=== PATIENT | female | born 1950 | race Caucasian/White ===

== ENCOUNTER 2021-12-08 16:36 | Inpatient (IN) | payer BC, MEDICARE ==
[2021-12-08 17:57] LABS: #Basophils 0.1 thou/uL (0.0-0.2); #Eosinphils 0.2 thou/uL (0.0-0.7); #Lymphocytes 2.7 thou/uL (1.20-3.40); #Monocytes 0.9 thou/uL (0.11-0.59); #Neutrophils 5.7 thou/uL (1.40-6.50); %Basophils 0.7 % (0.0-1.0); %Eosinophils 2.5 % (0.0-10.0); %Lymphocytes 27.6 % (21.0-51.0); %Monocytes 9.4 % (0.0-10.0); %Neutrophils 59.7 % (42.0-75.0); Hemoglobin 13.3 g/dL (12.0-16.0); Mean Corpuscular HGB CONC 32.8 g/dL (32.0-36.0); Mean Corpuscular Hemoglobin 33.1 pg (27.0-31.0); Mean Platelet Volume 7.3 fL (7.4-10.4); Platelet Count 333 thou/uL (130-400); RBC Distribution Width 11.8 % (11.5-14.5); Red Blood Cell (RBC) Count 4.01 mill/uL (4.20-5.40); White Blood Cell (WBC) Count 9.6 thou/uL (4.8-10.8)
[2021-12-08 18:12] LABS: ALT (SGPT) 28 U/L (8-55); AST (SGOT) 28 U/L (5-34); Albumin 3.6 g/dL (3.4-4.8); Alkaline Phosphatase 77 U/L (40-110); Anion Gap 11 mmol/L (10-20); BUN (Urea Nitrogen) 9 mg/dL (9.8-20.1); Bilirubin, Total 0.3 mg/dL (0.2-1.2); CK (CPK) 65 U/L (29-168); CRP (Inflammatory) Less than 0.50 mg/dL (= or < 0.5); Calc. Creatinine Clearance 0 mL/min (70-130); Calcium 8.6 mg/dL (7.8-10.44); Carbon Dioxide 29 mmol/L (23-31); Chloride 108 mmol/L (98-107); Globulin 2.9 g/dL (2.4-3.5); Glucose 81 mg/dL (80-115); Potassium 4.4 mmol/L (3.5-5.1); Protein, Total 6.5 g/dL (5.8-8.1); Sodium 144 mmol/L (136-145)
[2021-12-08] MEDS ORDERED: Enoxaparin Sodium 30 MG/0.3 ML SYRINGE ONE (19:11)
[2021-12-08] MEDS ORDERED: Enoxaparin Sodium 80 MG/0.8 ML SYRINGE ONE (19:11)
[2021-12-09] MEDS ORDERED: Ondansetron PF 4 MG/2 ML Vial IVP PRN (03:53)
[2021-12-09] MEDS ORDERED: Albuterol 200 PUFF (6.7GM INHALER) INH SCH (04:15)
[2021-12-09] MEDS ORDERED: methylPREDNISolone Sod Succ/PF 125 MG/2 ML VIAL ONE (04:41)
[2021-12-09] MEDS ORDERED: methylPREDNISolone Sod Succ/PF 125 MG/2 ML VIAL IVP SCH ×2 (04:45→12:00)
[2021-12-09] MEDS ORDERED: Acetaminophen 325 MG TAB ONE (04:46)
[2021-12-09] MEDS: Acetaminophen 325 MG TAB PO PRN (04:54)
[2021-12-09 05:25] LABS: #Basophils 0.1 thou/uL (0.0-0.2); #Eosinphils 0.3 thou/uL (0.0-0.7); #Lymphocytes 3.2 thou/uL (1.20-3.40); #Monocytes 0.9 thou/uL (0.11-0.59); #Neutrophils 4.4 thou/uL (1.40-6.50); %Basophils 1.2 % (0.0-1.0); %Eosinophils 3.3 % (0.0-10.0); %Lymphocytes 36.7 % (21.0-51.0); %Monocytes 9.6 % (0.0-10.0); %Neutrophils 49.2 % (42.0-75.0); Hemoglobin 13.2 g/dL (12.0-16.0); Mean Corpuscular HGB CONC 31.8 g/dL (32.0-36.0); Mean Corpuscular Hemoglobin 32.5 pg (27.0-31.0); Mean Platelet Volume 7.2 fL (7.4-10.4); Platelet Count 344 thou/uL (130-400); RBC Distribution Width 11.8 % (11.5-14.5); Red Blood Cell (RBC) Count 4.06 mill/uL (4.20-5.40); White Blood Cell (WBC) Count 8.8 thou/uL (4.8-10.8)
[2021-12-09] MEDS: Ipratropium Oral Inhaler INH SCH ×5 (05:29→19:31)
[2021-12-09 05:30] LABS: Anion Gap 11 mmol/L (10-20); BUN (Urea Nitrogen) 8 mg/dL (9.8-20.1); Calc. Creatinine Clearance 0 mL/min (70-130); Calcium 8.6 mg/dL (7.8-10.44); Carbon Dioxide 31 mmol/L (23-31); Chloride 105 mmol/L (98-107); Glucose 93 mg/dL (80-115); Potassium 3.9 mmol/L (3.5-5.1); Sodium 143 mmol/L (136-145)
[2021-12-09 05:33] VITALS: BMI 41.8
[2021-12-09] MEDS ORDERED: Albuterol Sulfate 1.25 MG/3 ML NEB ONE (06:13)
[2021-12-09] MEDS ORDERED: PROVENTIL INHALER 6.7 G (200 INHALATIONS) ONE (06:14)
[2021-12-09] MEDS: Albuterol 200 PUFF (6.7GM INHALER) INH SCH ×9 (06:45→22:00)
[2021-12-09] MEDS ORDERED: Communication Order-Pharmacy FS SCH (08:28)
[2021-12-09] MEDS ORDERED: Calcium Carbonate 500 MG ChewTAB PO PRN (09:22)
[2021-12-09] MEDS ORDERED: Zinc Sulfate 220 MG CAP ONE (10:19)
[2021-12-09] MEDS ORDERED: Famotidine/PF 20 mg/2ml Vial ONE (10:19)
[2021-12-09] MEDS ORDERED: Ascorbic Acid 500 mg Chewable Tablet ONE (10:19)
[2021-12-09] MEDS ORDERED: Enoxaparin Sodium 100 MG/ML SYRINGE ONE (10:19)
[2021-12-09] MEDS ORDERED: Folic Acid 1 MG TAB ONE (10:19)
[2021-12-09] MEDS ORDERED: Famotidine 20 MG TAB ONE (10:20)
[2021-12-09] MEDS: Enoxaparin Sodium 100 MG/ML SYRINGE SC SCH ×2 (10:37→20:58)
[2021-12-09] MEDS: Multivit, Therapeutic 1 TAB PO SCH (10:37)
[2021-12-09] MEDS: Famotidine 20 MG TAB PO SCH ×2 (10:37→20:55)
[2021-12-09] MEDS: guaiFENesin ER 600 MG TAB PO SCH ×2 (10:37→20:56)
[2021-12-09] MEDS: Folic Acid 1 MG TAB PO SCH (10:37)
[2021-12-09] MEDS: Cyanocobalamin (Vitamin B-12) 1,000 MCG TAB PO SCH (10:37)
[2021-12-09] MEDS: Ascorbic Acid 500 mg Chewable Tablet PO SCH (10:37)
[2021-12-09] MEDS: Zinc Sulfate 220 MG CAP PO SCH (10:37)
[2021-12-09] MEDS ORDERED: methylPREDNISolone Sod Succ 40 MG VIAL ONE (12:39)
[2021-12-09] MEDS: methylPREDNISolone Sod Succ 40 MG VIAL IVP SCH (20:56)
[2021-12-09] MEDS: Senokot S 8.6-50 MG TAB PO SCH (21:31)
[2021-12-10] MEDS: Ipratropium Oral Inhaler INH SCH ×6 (03:07→19:12)
[2021-12-10] MEDS: Albuterol 200 PUFF (6.7GM INHALER) INH SCH ×11 (03:07→22:43)
[2021-12-10 04:39] LABS: #Basophils 0.1 thou/uL (0.0-0.2); #Lymphocytes 1.9 thou/uL (1.20-3.40); #Monocytes 0.7 thou/uL (0.11-0.59); #Neutrophils 8.3 thou/uL (1.40-6.50); %Basophils 0.5 % (0.0-1.0); %Lymphocytes 17.5 % (21.0-51.0); %Monocytes 6.7 % (0.0-10.0); %Neutrophils 75.3 % (42.0-75.0); Hemoglobin 12.8 g/dL (12.0-16.0); Mean Corpuscular HGB CONC 33.9 g/dL (32.0-36.0); Mean Corpuscular Hemoglobin 34.2 pg (27.0-31.0); Mean Platelet Volume 7.6 fL (7.4-10.4); Platelet Count 320 thou/uL (130-400); RBC Distribution Width 11.5 % (11.5-14.5); Red Blood Cell (RBC) Count 3.73 mill/uL (4.20-5.40)
[2021-12-10 05:10] LABS: Anion Gap 13 mmol/L (10-20); BUN (Urea Nitrogen) 10 mg/dL (9.8-20.1); Calc. Creatinine Clearance 147 mL/min (70-130); Calcium 8.8 mg/dL (7.8-10.44); Carbon Dioxide 28 mmol/L (23-31); Chloride 106 mmol/L (98-107); Glucose 127 mg/dL (80-115); Potassium 4.2 mmol/L (3.5-5.1); Sodium 143 mmol/L (136-145)
[2021-12-10] MEDS: methylPREDNISolone Sod Succ 40 MG VIAL IVP SCH (06:13)
[2021-12-10] MEDS: Acetaminophen 325 MG TAB PO PRN (06:15)
[2021-12-10] MEDS: Famotidine 20 MG TAB PO SCH ×2 (09:31→21:04)
[2021-12-10] MEDS: Enoxaparin Sodium 100 MG/ML SYRINGE SC SCH (09:31)
[2021-12-10] MEDS: Zinc Sulfate 220 MG CAP PO SCH (09:31)
[2021-12-10] MEDS: Cyanocobalamin (Vitamin B-12) 1,000 MCG TAB PO SCH (09:32)
[2021-12-10] MEDS: Multivit, Therapeutic 1 TAB PO SCH (09:32)
[2021-12-10] MEDS: Senokot S 8.6-50 MG TAB PO SCH ×2 (09:32→22:51)
[2021-12-10] MEDS: Ascorbic Acid 500 mg Chewable Tablet PO SCH (09:32)
[2021-12-10] MEDS: guaiFENesin ER 600 MG TAB PO SCH ×2 (09:32→21:04)
[2021-12-10] MEDS: Folic Acid 1 MG TAB PO SCH (09:32)
[2021-12-10 15:30] LABS: SARS-CoV-2 PCR by NAA Not Detected (NotDetected)
[2021-12-10] MEDS: predniSONE 20 MG TAB PO SCH (16:24)
[2021-12-10] MEDS: Apixaban 5 MG TAB PO SCH (21:04)
[2021-12-11] MEDS: Albuterol 200 PUFF (6.7GM INHALER) INH SCH ×7 (01:43→11:44)
[2021-12-11] MEDS: Ipratropium Oral Inhaler INH SCH ×4 (01:44→11:44)
[2021-12-11] MEDS: Apixaban 5 MG TAB PO SCH (08:21)
[2021-12-11] MEDS: predniSONE 20 MG TAB PO SCH (08:23)
[2021-12-11] MEDS: Famotidine 20 MG TAB PO SCH (08:24)
[2021-12-11] MEDS: Ascorbic Acid 500 mg Chewable Tablet PO SCH (08:24)
[2021-12-11] MEDS: Zinc Sulfate 220 MG CAP PO SCH (08:24)
[2021-12-11] MEDS: guaiFENesin ER 600 MG TAB PO SCH (08:24)
[2021-12-11] MEDS: Multivit, Therapeutic 1 TAB PO SCH (08:24)
[2021-12-11] MEDS: Cyanocobalamin (Vitamin B-12) 1,000 MCG TAB PO SCH (08:24)
[2021-12-11] MEDS: Folic Acid 1 MG TAB PO SCH (08:24)
[2021-12-11] MEDS: Senokot S 8.6-50 MG TAB PO SCH (08:32)
[2021-12-11] MEDS ORDERED: Fluticasone Propionate Nasal Spray 16 gm Bottle NASAL SCH (09:00)
[2021-12-11] MEDS ORDERED: Loratadine 10 MG TAB PO SCH (09:00)
[2021-12-11 12:05] VITALS: BP 160/64; TEMP 97.4
== END 2021-12-11 13:39 | disposition home or self-care (01) | DRG 177 ==
LOC: ERS 16:36 → ERHOLD 21:02 → 2NO 12-09 16:58
PROVIDERS: ADMIT Internal Medicine; ATTEND Internal Medicine
PROC: 8E0ZXY6 Isolation (ICD-10-PCS; principal; 2021-12-08)
DX: U07.1 COVID-19 (principal); I26.93 Single subsegmental thrombotic pulmonary embolism without acute cor pulmonale; J96.21 Acute and chronic respiratory failure with hypoxia; J12.82 Pneumonia due to coronavirus disease 2019; J44.1 Chronic obstructive pulmonary disease with (acute) exacerbation; Z68.41 Body mass index [BMI] 40.0-44.9, adult; U09.9 Post COVID-19 condition, unspecified; F17.210 Nicotine dependence, cigarettes, uncomplicated; E66.01 Morbid (severe) obesity due to excess calories; I08.1 Rheumatic disorders of both mitral and tricuspid valves; D75.89 Other specified diseases of blood and blood-forming organs; Z90.49 Acquired absence of other specified parts of digestive tract; Z90.710 Acquired absence of both cervix and uterus
CPT/HCPCS: 36415; 80048; 82550; 83605; 83735; 83880; 84484; 85025; 86140; 93005; 93306; 93970; 94664; 94760; 96372; J1650; J2920; J2930; J7512; S0028; U0003; U0005

== ENCOUNTER 2022-02-13 09:50 | Outpatient (CLI) | payer BC, MEDICARE | END 2022-02-13 09:51 | disposition home or self-care (01) | LOC: RAD 09:50 | PROVIDERS: ATTEND Internal Medicine Critical Care Medicine | DX: R06.00 Dyspnea, unspecified (principal) | CPT/HCPCS: 71046 ==

== ENCOUNTER 2022-03-23 19:00 | Outpatient (CLI) | payer BC, MEDICARE | END 2022-03-23 19:01 | disposition home or self-care (01) | LOC: SLEEPLAB 19:00 | PROVIDERS: ATTEND Internal Medicine Critical Care Medicine | DX: G47.33 Obstructive sleep apnea (adult) (pediatric) (principal); J44.9 Chronic obstructive pulmonary disease, unspecified; R09.02 Hypoxemia | CPT/HCPCS: 95810 ==

== ENCOUNTER 2022-04-14 19:00 | Outpatient (CLI) | payer BC, MEDICARE | END 2022-04-14 19:01 | disposition home or self-care (01) | LOC: SLEEPLAB 19:00 | PROVIDERS: ATTEND Internal Medicine Critical Care Medicine | DX: G47.33 Obstructive sleep apnea (adult) (pediatric) (principal); E66.9 Obesity, unspecified; J44.9 Chronic obstructive pulmonary disease, unspecified; R09.02 Hypoxemia; Z68.38 Body mass index [BMI] 38.0-38.9, adult | CPT/HCPCS: 95811 ==

== ENCOUNTER 2023-05-02 10:32 | Outpatient (CLI) | payer MEDICARE | END 2023-05-02 10:33 | disposition home or self-care (01) | LOC: RAD 10:32 | PROVIDERS: ATTEND Internal Medicine Critical Care Medicine | DX: R06.00 Dyspnea, unspecified (principal); J98.4 Other disorders of lung | CPT/HCPCS: 71046 ==

== ENCOUNTER 2023-06-07 12:30 | Outpatient (CLI) | payer MEDICARE | END 2023-06-07 12:31 | disposition home or self-care (01) | LOC: PET 12:30 | PROVIDERS: ATTEND Internal Medicine | DX: C34.82 Malignant neoplasm of overlapping sites of left bronchus and lung (principal); C34.32 Malignant neoplasm of lower lobe, left bronchus or lung; J85.0 Gangrene and necrosis of lung | CPT/HCPCS: 78815; A9552 ==

== ENCOUNTER 2023-06-14 10:09 | Day surgery (SDC) | payer MEDICARE ==
[2023-06-08 12:05] VITALS: BMI 38.7
[2023-06-14] MEDS ORDERED: Acetaminophen 500 MG TAB ONE (11:54)
[2023-06-14] MEDS ORDERED: Ketorolac Tromethamine 30 MG/ML VIAL ONE (11:54)
[2023-06-14] MEDS ORDERED: Magnevist 469MG/ML 20 ML VIAL ONE (14:15)
[2023-06-14] MEDS ORDERED: Lidocaine 2% PF 5 ML VIAL ONE (15:19)
[2023-06-14] MEDS ORDERED: Bupivacaine HCl 0.5%/Epinephrine 1:200,000/PF 30 ml Vial ONE (15:19)
[2023-06-14] MEDS ORDERED: fentaNYL 50 mcg/mL 1 mL Vial ONE (15:54)
[2023-06-14] MEDS ORDERED: Sodium Chloride 0.9% 100 ML ONE (15:56)
[2023-06-14] MEDS ORDERED: CEFAZOLIN 2 GM VIAL ONE (15:56)
[2023-06-14] MEDS ORDERED: Dexamethasone 20 MG/5 ML VIAL ONE (16:13)
[2023-06-14] MEDS ORDERED: Lidocaine 1% PF 5 ML VIAL ONE (16:13)
[2023-06-14] MEDS ORDERED: Ondansetron PF 4 MG/2 ML Vial ONE (16:13)
[2023-06-14] MEDS ORDERED: PROPOFOL 200 MG/20 ML VIAL ONE (16:13)
== END 2023-06-14 18:07 | disposition home or self-care (01) ==
LOC: SDC 10:09
PROVIDERS: ATTEND Specialist
PROC: 0JH60WZ Insertion of Totally Implantable Vascular Access Device into Chest Subcutaneous Tissue and Fascia, Open Approach (ICD-10-PCS; principal; 2023-06-14)
DX: C34.92 Malignant neoplasm of unspecified part of left bronchus or lung (principal); J44.9 Chronic obstructive pulmonary disease, unspecified; Z87.891 Personal history of nicotine dependence; Z86.711 Personal history of pulmonary embolism; Z88.8 Allergy status to other drugs, medicaments and biological substances
CPT/HCPCS: 36561; 70553; 71045; C1788; J3010; A9579; J1100; J1642; J1885; J2001; J2405; J2704; J3490

== ENCOUNTER 2023-08-24 15:07 | Inpatient (IN) | payer MEDICARE ==
[2023-08-24 15:22] LABS: #Monocytes 1.3 thou/uL (0.11-0.59); #Neutrophils 15.5 thou/uL (1.40-6.50); %Basophils 0.2 % (0.0-1.0); %Eosinophils 0.1 % (0.0-10.0); %Lymphocytes 4.9 % (21.0-51.0); %Monocytes 7.2 % (0.0-10.0); %Neutrophils 86.6 % (42.0-75.0); Hematocrit 27.4 % (36.0-47.0); Hemoglobin 8.5 g/dL (12.0-16.0); Mean Corpuscular Hemoglobin 28.1 pg (27.0-31.0); Mean Corpuscular Volume 90.7 fl (78.0-98.0); Mean Platelet Volume 9.6 fL (7.4-10.4); Platelet Count 292 10x3/uL (130-400); RBC Distribution Width 21.8 % (11.5-14.5); Red Blood Cell (RBC) Count 3.02 mill/uL (4.20-5.40); White Blood Cell (WBC) Count 17.8 10x3/uL (4.8-10.8)
[2023-08-24 15:23] VITALS: BMI 37.4
[2023-08-24 15:41] LABS: ALT (SGPT) 15 U/L (8-55); AST (SGOT) 17 U/L (5-34); Albumin 3.3 g/dL (3.4-4.8); Alkaline Phosphatase 139 U/L (40-110); Anion Gap 16 mmol/L (10-20); BUN (Urea Nitrogen) 9 mg/dL (9.8-20.1); Bilirubin, Total Less than 0.2 mg/dL (0.2-1.2); Calc. Creatinine Clearance 0 mL/min (70-130); Calcium 9.1 mg/dL (7.8-10.44); Carbon Dioxide 28 mmol/L (23-31); Chloride 95 mmol/L (98-107); Estimated GFR 93; Globulin 3.8 g/dL (2.4-3.5); Glucose 113 mg/dL (83-110); Protein, Total 7.1 g/dL (5.8-8.1); Sodium 135 mmol/L (136-145)
[2023-08-24 15:46] LABS: Troponin I Less than 0.010 ng/mL (< 0.028)
[2023-08-24] MEDS ORDERED: Ondansetron ODT 4 MG TAB PO PRN (15:55)
[2023-08-24] MEDS ORDERED: Ondansetron PF 4 MG/2 ML Vial IVP PRN (15:55)
[2023-08-24] MEDS ORDERED: Acetaminophen 325 MG TAB PO PRN (15:55)
[2023-08-24] MEDS ORDERED: Meropenem 1 GM in Sodium Chloride 0.9% 100 ML IVPB SCH ×2 (16:15→22:00)
[2023-08-24] MEDS ORDERED: Lidocaine-Prilocaine 2.5% Cream 5 GM TUBE TOP PRN (16:27)
[2023-08-24] MEDS ORDERED: Non-Formulary Item 1 EACH (Docusate Sodium [Stool Softener] 50 MG Capsule) PO PRN (16:27)
[2023-08-24] MEDS ORDERED: Vancomycin 1 GM in Premix Bag 1 BAG IVPB SCH ×2 (16:30→21:00)
[2023-08-24] MEDS ORDERED: Vancomycin HCl 2.5 GM in Sodium Chloride 0.9% 500 ML IVPB SCH ×2 (16:30→17:30)
[2023-08-24] MEDS ORDERED: Prochlorperazine Maleate 5 MG TAB PO PRN (16:50)
[2023-08-24] MEDS ORDERED: Ipratropium/Albuterol 3 ML NEB NEB PRN (17:02)
[2023-08-24] MEDS: Ipratropium Bromide 2.5 ml Neb NEB SCH (18:57)
[2023-08-24] MEDS: Cyanocobalamin (Vitamin B-12) 1,000 MCG TAB PO SCH (20:11)
[2023-08-24] MEDS: Apixaban 5 MG TAB PO SCH (20:12)
[2023-08-24] MEDS: Benzonatate 100 MG CAP PO PRN (20:12)
[2023-08-24] MEDS: Ondansetron ODT 8 MG TAB PO SCH (20:15)
[2023-08-25] MEDS: Meropenem 1 GM in Sodium Chloride 0.9% 100 ML IVPB SCH ×3 (00:30→16:20)
[2023-08-25 04:36] LABS: #Monocytes 1.1 thou/uL (0.11-0.59); #Neutrophils 11.6 thou/uL (1.40-6.50); %Basophils 0.1 % (0.0-1.0); %Eosinophils 0.1 % (0.0-10.0); %Lymphocytes 7.5 % (21.0-51.0); %Monocytes 7.9 % (0.0-10.0); %Neutrophils 83.1 % (42.0-75.0); Hematocrit 26.4 % (36.0-47.0); Mean Corpuscular HGB CONC 30.3 g/dL (32.0-36.0); Mean Corpuscular Hemoglobin 27.7 pg (27.0-31.0); Mean Corpuscular Volume 91.3 fl (78.0-98.0); Mean Platelet Volume 9.7 fL (7.4-10.4); Platelet Count 287 10x3/uL (130-400); Red Blood Cell (RBC) Count 2.89 mill/uL (4.20-5.40)
[2023-08-25 05:04] LABS: Anion Gap 14 mmol/L (10-20); BUN (Urea Nitrogen) 7 mg/dL (9.8-20.1); Calc. Creatinine Clearance 120 mL/min (70-130); Calcium 8.8 mg/dL (7.8-10.44); Carbon Dioxide 30 mmol/L (23-31); Chloride 97 mmol/L (98-107); Estimated GFR 93; Glucose 101 mg/dL (83-110); Potassium 4.1 mmol/L (3.5-5.1); Sodium 137 mmol/L (136-145)
[2023-08-25] MEDS: Ondansetron ODT 8 MG TAB PO SCH ×3 (05:19→22:00)
[2023-08-25] MEDS: VANCOMYCIN 1.25 GM/250 ML BAG 1.25 GM in Premix Bag 1 BAG IVPB SCH ×2 (05:26→20:49)
[2023-08-25] MEDS: Ipratropium Bromide 2.5 ml Neb NEB SCH ×3 (05:38→18:39)
[2023-08-25] MEDS ORDERED: VANCOMYCIN 1.25 GM/250 ML BAG 1.25 GM in Premix Bag 1 BAG IVPB SCH (06:00)
[2023-08-25] MEDS: Apixaban 5 MG TAB PO SCH ×2 (08:51→20:47)
[2023-08-25] MEDS: Folic Acid 1 MG TAB PO SCH (08:51)
[2023-08-25] MEDS: Cholecalciferol 1,000 UNITS (25 MCG) TAB PO SCH (08:51)
[2023-08-25] MEDS: Gabapentin 300 MG CAP PO SCH (08:52)
[2023-08-25] MEDS: traMADol HCl 50 MG TAB PO SCH (09:16)
[2023-08-25] MEDS ORDERED: Lorazepam 2 MG/ML VIAL SLOW IVP PRN (11:42)
[2023-08-25] MEDS: Cyanocobalamin (Vitamin B-12) 1,000 MCG TAB PO SCH (20:47)
[2023-08-26] MEDS: Meropenem 1 GM in Sodium Chloride 0.9% 100 ML IVPB SCH ×3 (00:14→18:33)
[2023-08-26 06:28] LABS: #Monocytes 1.2 thou/uL (0.11-0.59); #Neutrophils 10.1 thou/uL (1.40-6.50); %Basophils 0.2 % (0.0-1.0); %Eosinophils 0.2 % (0.0-10.0); %Lymphocytes 8.5 % (21.0-51.0); %Monocytes 9.3 % (0.0-10.0); %Neutrophils 80.8 % (42.0-75.0); Hemoglobin 7.6 g/dL (12.0-16.0); Mean Corpuscular HGB CONC 30.4 g/dL (32.0-36.0); Mean Corpuscular Hemoglobin 27.9 pg (27.0-31.0); Mean Corpuscular Volume 91.9 fl (78.0-98.0); Mean Platelet Volume 9.4 fL (7.4-10.4); Platelet Count 256 10x3/uL (130-400); RBC Distribution Width 21.7 % (11.5-14.5); Red Blood Cell (RBC) Count 2.72 mill/uL (4.20-5.40); White Blood Cell (WBC) Count 12.5 10x3/uL (4.8-10.8)
[2023-08-26] MEDS: Ipratropium Bromide 2.5 ml Neb NEB SCH ×3 (06:38→18:49)
[2023-08-26] MEDS: Ondansetron ODT 8 MG TAB PO SCH ×2 (06:42→16:06)
[2023-08-26 06:50] LABS: Vancomycin, Trough 13.8 ug/mL
[2023-08-26 06:51] LABS: Anion Gap 13 mmol/L (10-20); BUN (Urea Nitrogen) 5 mg/dL (9.8-20.1); Calc. Creatinine Clearance 136 mL/min (70-130); Calcium 8.6 mg/dL (7.8-10.44); Carbon Dioxide 31 mmol/L (23-31); Chloride 96 mmol/L (98-107); Estimated GFR 96; Glucose 116 mg/dL (83-110); Potassium 3.8 mmol/L (3.5-5.1); Sodium 136 mmol/L (136-145)
[2023-08-26] MEDS: Vancomycin 1.5 GRAM/300 ML BAG 1.5 GM in Premix Bag 1 BAG IVPB SCH ×2 (09:51→20:23)
[2023-08-26] MEDS: Cholecalciferol 1,000 UNITS (25 MCG) TAB PO SCH (09:52)
[2023-08-26] MEDS: Gabapentin 300 MG CAP PO SCH (09:53)
[2023-08-26] MEDS: Apixaban 5 MG TAB PO SCH ×2 (09:53→20:25)
[2023-08-26] MEDS: Folic Acid 1 MG TAB PO SCH (09:53)
[2023-08-26] MEDS: traMADol HCl 50 MG TAB PO SCH (09:54)
[2023-08-26] MEDS ORDERED: Ondansetron ODT 4 MG TAB PO SCH (15:30)
[2023-08-26] MEDS: VANCOMYCIN 1.25 GM/250 ML BAG 1.25 GM in Premix Bag 1 BAG IVPB SCH (16:06)
[2023-08-26] MEDS: Cyanocobalamin (Vitamin B-12) 1,000 MCG TAB PO SCH (20:25)
[2023-08-26] MEDS: Ondansetron ODT 4 MG TAB PO SCH (22:00)
[2023-08-27] MEDS: Meropenem 1 GM in Sodium Chloride 0.9% 100 ML IVPB SCH ×2 (00:11→11:45)
[2023-08-27] MEDS: Ipratropium Bromide 2.5 ml Neb NEB SCH ×2 (06:44→14:03)
[2023-08-27] MEDS: Ondansetron ODT 4 MG TAB PO SCH ×3 (06:53→21:05)
[2023-08-27 07:14] LABS: Anion Gap 13 mmol/L (10-20); BUN (Urea Nitrogen) 6 mg/dL (9.8-20.1); Calc. Creatinine Clearance 143 mL/min (70-130); Calcium 8.6 mg/dL (7.8-10.44); Carbon Dioxide 32 mmol/L (23-31); Chloride 97 mmol/L (98-107); Estimated GFR 97; Glucose 100 mg/dL (83-110); Potassium 3.7 mmol/L (3.5-5.1); Sodium 138 mmol/L (136-145)
[2023-08-27 07:47] LABS: #Monocytes 1.3 thou/uL (0.11-0.59); #Neutrophils 9.4 thou/uL (1.40-6.50); %Basophils 0.3 % (0.0-1.0); %Eosinophils 0.3 % (0.0-10.0); %Lymphocytes 8.2 % (21.0-51.0); %Monocytes 11.1 % (0.0-10.0); %Neutrophils 79.1 % (42.0-75.0); Hematocrit 23.6 % (36.0-47.0); Hemoglobin 7.2 g/dL (12.0-16.0); Mean Corpuscular HGB CONC 30.5 g/dL (32.0-36.0); Mean Corpuscular Hemoglobin 27.9 pg (27.0-31.0); Mean Corpuscular Volume 91.5 fl (78.0-98.0); Mean Platelet Volume 9.4 fL (7.4-10.4); Platelet Count 285 10x3/uL (130-400); RBC Distribution Width 21.4 % (11.5-14.5); Red Blood Cell (RBC) Count 2.58 mill/uL (4.20-5.40); White Blood Cell (WBC) Count 11.9 10x3/uL (4.8-10.8)
[2023-08-27] MEDS ORDERED: FLU VACC QS2023(65UP)/MF59C/PF 60 MCG/0.5 ML SYRINGE IM ONE (09:00)
[2023-08-27] MEDS: Vancomycin 1.5 GRAM/300 ML BAG 1.5 GM in Premix Bag 1 BAG IVPB SCH (09:40)
[2023-08-27] MEDS: Cholecalciferol 1,000 UNITS (25 MCG) TAB PO SCH (09:42)
[2023-08-27] MEDS: Folic Acid 1 MG TAB PO SCH (09:42)
[2023-08-27] MEDS: Gabapentin 300 MG CAP PO SCH (09:43)
[2023-08-27] MEDS ORDERED: Ipratropium/Albuterol 3 ML NEB NEB SCH ×2 (09:45→13:00)
[2023-08-27] MEDS: traMADol HCl 50 MG TAB PO SCH (09:45)
[2023-08-27] MEDS ORDERED: Mometasone/Formoterol 200/5 60 PUFF INH SCH (09:45)
[2023-08-27] MEDS: Apixaban 5 MG TAB PO SCH ×2 (09:48→21:05)
[2023-08-27] MEDS ORDERED: Albuterol 200 PUFF (6.7GM INHALER) INH PRN (09:50)
[2023-08-27] MEDS: Mometasone 200 MCG/Formoterol 5 MCG 120 PUFF INHALER INH SCH ×2 (09:52→19:15)
[2023-08-27] MEDS: Ipratropium/Albuterol 3 ML NEB NEB SCH ×6 (09:59→22:32)
[2023-08-27] MEDS ORDERED: Sodium Chloride 0.9% 100 ML ONE (10:42)
[2023-08-27] MEDS ORDERED: Meropenem 2 GM in Sodium Chloride 0.9% 100 ML IVPB SCH ×2 (11:35→20:00)
[2023-08-27] MEDS: Benzonatate 100 MG CAP PO PRN (11:46)
[2023-08-27] MEDS ORDERED: Ipratropium/Albuterol 3 ML NEB NEB PRN (17:00)
[2023-08-27] MEDS ORDERED: Meropenem 2 GM, Admixture Fee 1 EACH in Sodium Chloride 0.9% 100 ML IVPB SCH (20:00)
[2023-08-27] MEDS: Cyanocobalamin (Vitamin B-12) 1,000 MCG TAB PO SCH (21:08)
[2023-08-28] MEDS: Ipratropium/Albuterol 3 ML NEB NEB SCH ×5 (02:30→19:07)
[2023-08-28] MEDS: Ondansetron ODT 4 MG TAB PO SCH ×3 (05:07→20:26)
[2023-08-28] MEDS: Meropenem 2 GM, Admixture Fee 1 EACH in Sodium Chloride 0.9% 100 ML IVPB SCH ×3 (05:08→20:36)
[2023-08-28 05:20] LABS: #Eosinphils 0.1 thou/uL (0.0-0.7); #Neutrophils 8.6 thou/uL (1.40-6.50); %Basophils 0.2 % (0.0-1.0); %Eosinophils 0.5 % (0.0-10.0); %Lymphocytes 10.2 % (21.0-51.0); %Monocytes 8.7 % (0.0-10.0); %Neutrophils 79.1 % (42.0-75.0); Hematocrit 22.4 % (36.0-47.0); Hemoglobin 6.9 g/dL (12.0-16.0); Mean Corpuscular HGB CONC 30.8 g/dL (32.0-36.0); Mean Corpuscular Hemoglobin 28.5 pg (27.0-31.0); Mean Corpuscular Volume 92.6 fl (78.0-98.0); Mean Platelet Volume 10.1 fL (7.4-10.4); Platelet Count 302 10x3/uL (130-400); RBC Distribution Width 21.7 % (11.5-14.5); Red Blood Cell (RBC) Count 2.42 mill/uL (4.20-5.40); White Blood Cell (WBC) Count 10.9 10x3/uL (4.8-10.8)
[2023-08-28 05:47] LABS: Anion Gap 14 mmol/L (10-20); BUN (Urea Nitrogen) 7 mg/dL (9.8-20.1); Calc. Creatinine Clearance 109 mL/min (70-130); Calcium 8.6 mg/dL (7.8-10.44); Carbon Dioxide 31 mmol/L (23-31); Chloride 94 mmol/L (98-107); Estimated GFR 84; Glucose 141 mg/dL (83-110); Potassium 3.5 mmol/L (3.5-5.1); Sodium 135 mmol/L (136-145)
[2023-08-28] MEDS: Mometasone 200 MCG/Formoterol 5 MCG 120 PUFF INHALER INH SCH ×2 (07:36→19:04)
[2023-08-28] MEDS: traMADol HCl 50 MG TAB PO SCH (09:28)
[2023-08-28] MEDS: Benzonatate 100 MG CAP PO PRN (09:28)
[2023-08-28] MEDS: Cholecalciferol 1,000 UNITS (25 MCG) TAB PO SCH (09:29)
[2023-08-28] MEDS: Gabapentin 300 MG CAP PO SCH (09:29)
[2023-08-28] MEDS: Folic Acid 1 MG TAB PO SCH (09:29)
[2023-08-28] MEDS: Apixaban 5 MG TAB PO SCH (09:30)
[2023-08-28 19:40] VITALS: BP 115/65; TEMP 98.5
[2023-08-28] MEDS: Cyanocobalamin (Vitamin B-12) 1,000 MCG TAB PO SCH (20:27)
== END 2023-08-28 20:40 | disposition swing bed (61) | DRG 871 ==
LOC: SJJU 15:07
PROVIDERS: ADMIT Family Medicine; ATTEND Internal Medicine
PROC: 02HV33Z Insertion of Infusion Device into Superior Vena Cava, Percutaneous Approach (ICD-10-PCS; principal; 2023-08-24)
PROC: B5181ZA Fluoroscopy of Superior Vena Cava using Low Osmolar Contrast, Guidance (ICD-10-PCS; 2023-08-24)
PROC: 5A09357 Assistance with Respiratory Ventilation, Less than 24 Consecutive Hours, Continuous Positive Airway Pressure (ICD-10-PCS; 2023-08-24)
PROC: 30233N1 Transfusion of Nonautologous Red Blood Cells into Peripheral Vein, Percutaneous Approach (ICD-10-PCS; 2023-08-28)
DX: A41.9 Sepsis, unspecified organism (principal); J15.1 Pneumonia due to Pseudomonas; J96.21 Acute and chronic respiratory failure with hypoxia; C34.90 Malignant neoplasm of unspecified part of unspecified bronchus or lung; J44.0 Chronic obstructive pulmonary disease with (acute) lower respiratory infection; G47.33 Obstructive sleep apnea (adult) (pediatric); D64.9 Anemia, unspecified; Z91.018 Allergy to other foods; Z88.8 Allergy status to other drugs, medicaments and biological substances; Z79.899 Other long term (current) drug therapy; Z98.890 Other specified postprocedural states; Z90.49 Acquired absence of other specified parts of digestive tract; Z90.710 Acquired absence of both cervix and uterus; Z87.891 Personal history of nicotine dependence; Z86.711 Personal history of pulmonary embolism; Z80.0 Family history of malignant neoplasm of digestive organs; Z99.81 Dependence on supplemental oxygen; Z86.16 Personal history of COVID-19
CPT/HCPCS: 36415; 36430; 36569; 71045; 80048; 80053; 80202; 83605; 84484; 85025; 86850; 86900; 86901; 87040; 87070; 87077; 87081; 87186; 87205; 94640; J1642; J2060; J2185; J3370; J3490; J7030; J7620; P9016; Q0162

== ENCOUNTER 2023-11-10 14:35 | Inpatient (IN) | payer MEDICARE, OTHER ==
[2023-11-10] MEDS ORDERED: Bisacodyl 5 MG TAB PO PRN (17:00)
[2023-11-10] MEDS ORDERED: Acetaminophen 325 MG TAB PO PRN (17:00)
[2023-11-10] MEDS ORDERED: Bisacodyl 10 MG SUPP PR PRN (17:00)
[2023-11-10] MEDS ORDERED: Senokot S 8.6-50 MG TAB PO PRN (17:00)
[2023-11-10] MEDS ORDERED: Guaifenesin DM 100-10/5 ML UDCUP PO PRN (17:00)
[2023-11-10 17:14] VITALS: BMI 37.4
[2023-11-10] MEDS ORDERED: Vancomycin (BATCH) 2 GM in Premix 1 BAG IVPB SCH (18:15)
[2023-11-10] MEDS: Ipratropium/Albuterol 3 ML NEB NEB SCH ×2 (18:38→23:05)
[2023-11-10] MEDS: methylPREDNISolone Sod Succ 40 MG VIAL IVP SCH ×2 (18:42→23:52)
[2023-11-10 19:42] LABS: Hematocrit 24.5 % (36.0-47.0); Hemoglobin 6.9 g/dL (12.0-16.0); Mean Corpuscular HGB CONC 28.2 g/dL (32.0-36.0); Mean Corpuscular Hemoglobin 26.3 pg (27.0-31.0); Mean Corpuscular Volume 93.5 fl (78.0-98.0); Mean Platelet Volume 9.8 fL (7.4-10.4); Platelet Count 438 10x3/uL (130-400); RBC Distribution Width 19.6 % (11.5-14.5); Red Blood Cell (RBC) Count 2.62 mill/uL (4.20-5.40); White Blood Cell (WBC) Count 30.9 10x3/uL (4.8-10.8)
[2023-11-10] MEDS: Mometasone/Formoterol 200/5 60 PUFF INH SCH (19:45)
[2023-11-10 19:57] LABS: Legionella Urinary Ag Negative (Negative); Strep pneumo Urine Ag POSITIVE (NEGATIVE)
[2023-11-10 19:59] LABS: Iron 19 ug/dL (50-170); Iron Binding Capacity, Total 166 mcg/dL (265-497)
[2023-11-10] MEDS: Pantoprazole 40 MG VIAL IVP SCH (20:08)
[2023-11-10] MEDS: Enoxaparin 100 MG (1 mL) SYRINGE SC SCH (20:08)
[2023-11-10] MEDS ORDERED: Cyanocobalamin (Vitamin B-12) 1,000 MCG TAB PO SCH (21:00)
[2023-11-10] MEDS ORDERED: Vancomycin 1 GM in Premix 1 BAG IVPB SCH (21:00)
[2023-11-11] MEDS: methylPREDNISolone Sod Succ 40 MG VIAL IVP SCH ×4 (05:36→23:56)
[2023-11-11] MEDS: Ipratropium/Albuterol 3 ML NEB NEB SCH ×4 (07:50→22:46)
[2023-11-11] MEDS: Mometasone/Formoterol 200/5 60 PUFF INH SCH (07:51)
[2023-11-11 08:26] LABS: Hematocrit 27.1 % (36.0-47.0); Hemoglobin 7.7 g/dL (12.0-16.0); Manual Diff?? YES; Mean Corpuscular HGB CONC 28.4 g/dL (32.0-36.0); Mean Corpuscular Volume 95.1 fl (78.0-98.0); Mean Platelet Volume 9.7 fL (7.4-10.4); Platelet Count 426 10x3/uL (130-400); Red Blood Cell (RBC) Count 2.85 mill/uL (4.20-5.40); White Blood Cell (WBC) Count 31.2 10x3/uL (4.8-10.8)
[2023-11-11 08:53] LABS: Delete Auto Diff?? YES
[2023-11-11] MEDS ORDERED: Folic Acid 1 MG TAB PO SCH (09:00)
[2023-11-11] MEDS: Enoxaparin 100 MG (1 mL) SYRINGE SC SCH (09:06)
[2023-11-11] MEDS: Gabapentin 300 MG CAP PO SCH (09:06)
[2023-11-11] MEDS: Azithromycin 250 MG TAB PO SCH (09:06)
[2023-11-11] MEDS: Pantoprazole 40 MG VIAL IVP SCH ×2 (09:08→20:46)
[2023-11-11] MEDS: Vancomycin (BATCH) 1.25 GM in Premix 1 BAG IVPB SCH ×2 (09:34→20:39)
[2023-11-11 10:05] LABS: Hemoglobin A1c 5.6 % (4.0-6.0)
[2023-11-11] MEDS: Ipratropium/Albuterol 3 ML NEB NEB PRN (10:19)
[2023-11-11 11:02] LABS: Band 8 % (5-11); Lymphocytes 5 % (21-51); Metamyelocyte 1 % (0-0); Monocytes 1 % (0-10); Neutrophil 85 % (42-75)
[2023-11-11 11:04] LABS: Platelet Adequacy Comment Appears Increased
[2023-11-11] MEDS ORDERED: Benzonatate 100 MG CAP PO PRN (13:29)
[2023-11-11] MEDS ORDERED: Meropenem 1 GM in Sodium Chloride 0.9% 100 ML IVPB SCH (13:30)
[2023-11-11] MEDS ORDERED: methylPREDNISolone Sod Succ 40 MG VIAL IVP SCH (13:30)
[2023-11-11 15:12] LABS: ALT (SGPT) 20 U/L (8-55); AST (SGOT) 22 U/L (5-34); Albumin 2.2 g/dL (3.4-4.8); Alkaline Phosphatase 162 U/L (40-110); Anion Gap 17 mmol/L (10-20); BUN (Urea Nitrogen) 10 mg/dL (9.8-20.1); Bilirubin, Direct 0.1 mg/dL (0.1-0.3); Bilirubin, Total 0.2 mg/dL (0.2-1.2); Calc. Creatinine Clearance 146 mL/min (70-130); Calcium 8.9 mg/dL (7.8-10.44); Carbon Dioxide 30 mmol/L (23-31); Chloride 99 mmol/L (98-107); Estimated GFR 97; Glucose 143 mg/dL (83-110); Magnesium 2.1 mg/dL (1.6-2.6); Protein, Total 5.9 g/dL (5.8-8.1); Sodium 142 mmol/L (136-145)
[2023-11-11] MEDS ORDERED: Cefepime 2 GM in Sodium Chloride 0.9% 100 ML IVPB SCH (18:00)
[2023-11-11] MEDS: guaiFENesin ER 600 MG TAB PO SCH (20:46)
[2023-11-11] MEDS: Apixaban 5 MG TAB PO SCH (20:46)
[2023-11-11] MEDS: Meropenem 1 GM in Sodium Chloride 0.9% 100 ML IVPB SCH (20:51)
[2023-11-11] MEDS ORDERED: Non-Formulary Item 1 EACH (Fluticasone Propion/Salmeterol [Advair Diskus 250/50] 1 EACH B IH SCH (21:00)
[2023-11-12] MEDS: Ipratropium/Albuterol 3 ML NEB NEB SCH ×6 (02:48→23:26)
[2023-11-12] MEDS: Ipratropium/Albuterol 3 ML NEB NEB PRN ×2 (04:42→17:11)
[2023-11-12] MEDS: Meropenem 1 GM in Sodium Chloride 0.9% 100 ML IVPB SCH ×3 (05:11→22:29)
[2023-11-12] MEDS: methylPREDNISolone Sod Succ 40 MG VIAL IVP SCH ×4 (05:11→23:57)
[2023-11-12 07:37] LABS: Hematocrit 30.8 % (36.0-47.0); Hemoglobin 8.7 g/dL (12.0-16.0); Manual Diff?? YES; Mean Corpuscular HGB CONC 28.2 g/dL (32.0-36.0); Mean Corpuscular Hemoglobin 26.7 pg (27.0-31.0); Mean Corpuscular Volume 94.5 fl (78.0-98.0); Platelet Count 458 10x3/uL (130-400); RBC Distribution Width 19.7 % (11.5-14.5); Red Blood Cell (RBC) Count 3.26 mill/uL (4.20-5.40)
[2023-11-12 08:05] LABS: Vancomycin, Trough 13.8 ug/mL
[2023-11-12 08:13] LABS: Delete Auto Diff?? YES
[2023-11-12 08:14] LABS: Anion Gap 11 mmol/L (10-20); BUN (Urea Nitrogen) 13 mg/dL (9.8-20.1); Calc. Creatinine Clearance 130 mL/min (70-130); Carbon Dioxide 34 mmol/L (23-31); Chloride 99 mmol/L (98-107); Estimated GFR 94; Glucose 187 mg/dL (83-110); Sodium 140 mmol/L (136-145)
[2023-11-12 09:24] LABS: Band 6 % (5-11); Lymphocytes 2 % (21-51); Monocytes 3 % (0-10); Neutrophil 89 % (42-75); Platelet Adequacy Comment Appears Increased
[2023-11-12] MEDS: Azithromycin 250 MG TAB PO SCH (10:05)
[2023-11-12] MEDS: Vancomycin (BATCH) 1.25 GM in Premix 1 BAG IVPB SCH ×2 (10:05→21:47)
[2023-11-12] MEDS: Pantoprazole 40 MG VIAL IVP SCH ×2 (10:05→21:47)
[2023-11-12] MEDS: guaiFENesin ER 600 MG TAB PO SCH ×2 (10:06→21:47)
[2023-11-12] MEDS: Apixaban 5 MG TAB PO SCH ×2 (10:06→21:47)
[2023-11-12] MEDS: Gabapentin 300 MG CAP PO SCH (10:06)
[2023-11-12] MEDS ORDERED: Furosemide 20 MG (2 mL) VIAL SLOW IVP SCH (11:15)
[2023-11-12] MEDS: Budesonide 0.25 MG/2 ML NEB NEB SCH (18:58)
[2023-11-13] MEDS: Ipratropium/Albuterol 3 ML NEB NEB SCH ×6 (02:53→22:55)
[2023-11-13] MEDS: methylPREDNISolone Sod Succ 40 MG VIAL IVP SCH ×4 (06:18→22:54)
[2023-11-13] MEDS: Meropenem 1 GM in Sodium Chloride 0.9% 100 ML IVPB SCH ×3 (06:19→21:36)
[2023-11-13] MEDS: Budesonide 0.25 MG/2 ML NEB NEB SCH ×2 (07:02→19:13)
[2023-11-13 07:09] LABS: Hematocrit 35.7 % (36.0-47.0); Hemoglobin 10.1 g/dL (12.0-16.0); Manual Diff?? YES; Mean Corpuscular HGB CONC 28.3 g/dL (32.0-36.0); Mean Corpuscular Hemoglobin 27.1 pg (27.0-31.0); Mean Corpuscular Volume 95.7 fl (78.0-98.0); Mean Platelet Volume 9.8 fL (7.4-10.4); Platelet Count 444 10x3/uL (130-400); RBC Distribution Width 19.9 % (11.5-14.5); Red Blood Cell (RBC) Count 3.73 mill/uL (4.20-5.40); White Blood Cell (WBC) Count 31.4 10x3/uL (4.8-10.8)
[2023-11-13 07:13] LABS: Delete Auto Diff?? YES
[2023-11-13 07:36] LABS: BUN (Urea Nitrogen) 16 mg/dL (9.8-20.1); Calc. Creatinine Clearance 148 mL/min (70-130); Calcium 9.3 mg/dL (7.8-10.44); Estimated GFR 98; Glucose 114 mg/dL (83-110)
[2023-11-13 07:54] LABS: Anion Gap 14 mmol/L (10-20); Carbon Dioxide 38 mmol/L (23-31); Chloride 97 mmol/L (98-107); Potassium 4.2 mmol/L (3.5-5.1); Sodium 145 mmol/L (136-145)
[2023-11-13] MEDS: Vancomycin (BATCH) 1.25 GM in Premix 1 BAG IVPB SCH ×2 (07:55→21:35)
[2023-11-13] MEDS: Furosemide 20 MG (2 mL) VIAL SLOW IVP SCH (07:56)
[2023-11-13] MEDS: Apixaban 5 MG TAB PO SCH ×2 (07:56→21:36)
[2023-11-13] MEDS: guaiFENesin ER 600 MG TAB PO SCH ×2 (07:56→21:36)
[2023-11-13] MEDS: Gabapentin 300 MG CAP PO SCH (07:56)
[2023-11-13] MEDS: Pantoprazole 40 MG VIAL IVP SCH ×2 (07:57→21:36)
[2023-11-13 08:42] LABS: Band 16 % (5-11); Lymphocytes 8 % (21-51); Metamyelocyte 1 % (0-0); Neutrophil 75 % (42-75); Platelet Adequacy Comment Platelets Increased; Polychromasia SLIGHT = 2-3 cells (100X) (0-2/hpf)
[2023-11-13 19:33] LABS: Vancomycin, Trough 17.3 ug/mL
[2023-11-13] MEDS ORDERED: traZODone HCl 50 MG TAB PO PRN (23:14)
[2023-11-13] MEDS ORDERED: Melatonin 3 MG TAB PO SCH (23:15)
[2023-11-14] MEDS: Ipratropium/Albuterol 3 ML NEB NEB SCH ×6 (02:26→21:54)
[2023-11-14] MEDS: Ipratropium/Albuterol 3 ML NEB NEB PRN (04:00)
[2023-11-14] MEDS: Furosemide 40 MG (4 mL) VIAL SLOW IVP SCH ×2 (05:05→15:09)
[2023-11-14] MEDS: Meropenem 1 GM in Sodium Chloride 0.9% 100 ML IVPB SCH ×3 (05:05→21:39)
[2023-11-14] MEDS: methylPREDNISolone Sod Succ 40 MG VIAL IVP SCH ×4 (05:05→23:34)
[2023-11-14] MEDS: Budesonide 0.25 MG/2 ML NEB NEB SCH ×2 (07:28→18:54)
[2023-11-14] MEDS: Morphine 2 MG/ML VIAL SLOW IVP PRN ×4 (08:03→23:37)
[2023-11-14] MEDS: Lorazepam 2 MG/ML VIAL SLOW IVP PRN ×2 (08:04→15:47)
[2023-11-14] MEDS: guaiFENesin ER 600 MG TAB PO SCH ×2 (08:17→19:56)
[2023-11-14] MEDS: Gabapentin 300 MG CAP PO SCH (08:17)
[2023-11-14] MEDS: Apixaban 5 MG TAB PO SCH ×2 (08:18→19:56)
[2023-11-14 09:07] LABS: Hematocrit 37.3 % (36.0-47.0); Hemoglobin 10.6 g/dL (12.0-16.0); Mean Corpuscular HGB CONC 28.4 g/dL (32.0-36.0); Mean Corpuscular Hemoglobin 27.2 pg (27.0-31.0); Mean Corpuscular Volume 95.6 fl (78.0-98.0); Mean Platelet Volume 9.7 fL (7.4-10.4); Platelet Count 441 10x3/uL (130-400); RBC Distribution Width 19.2 % (11.5-14.5); White Blood Cell (WBC) Count 22.3 10x3/uL (4.8-10.8)
[2023-11-14 09:25] LABS: Delete Auto Diff?? YES; Manual Diff?? YES
[2023-11-14 09:43] LABS: BUN (Urea Nitrogen) 17 mg/dL (9.8-20.1); Calc. Creatinine Clearance 149 mL/min (70-130); Carbon Dioxide Greater than 37 mmol/L (23-31); Chloride 91 mmol/L (98-107); Estimated GFR 98; Glucose 136 mg/dL (83-110); Potassium 4.8 mmol/L (3.5-5.1); Sodium 145 mmol/L (136-145)
[2023-11-14 09:58] LABS: Band 7 % (5-11); Lymphocytes 3 % (21-51); Myelocyte 1 % (0-0); Neutrophil 89 % (42-75); Platelet Adequacy Comment Platelets Increased; Polychromasia SLIGHT = 2-3 cells (100X) (0-2/hpf)
[2023-11-14] MEDS: Vancomycin (BATCH) 1.25 GM in Premix 1 BAG IVPB SCH ×2 (10:00→20:03)
[2023-11-14] MEDS: Furosemide 20 MG (2 mL) VIAL SLOW IVP SCH (10:57)
[2023-11-14] MEDS: Pantoprazole 40 MG VIAL IVP SCH ×2 (11:19→19:56)
[2023-11-15] MEDS: Lorazepam 2 MG/ML VIAL SLOW IVP PRN ×2 (01:55→23:51)
[2023-11-15] MEDS: Ipratropium/Albuterol 3 ML NEB NEB SCH ×6 (02:01→21:49)
[2023-11-15] MEDS: Furosemide 40 MG (4 mL) VIAL SLOW IVP SCH ×2 (05:30→13:42)
[2023-11-15] MEDS: methylPREDNISolone Sod Succ 40 MG VIAL IVP SCH ×4 (05:30→23:53)
[2023-11-15] MEDS: Meropenem 1 GM in Sodium Chloride 0.9% 100 ML IVPB SCH ×3 (05:30→22:19)
[2023-11-15] MEDS: Morphine 2 MG/ML VIAL SLOW IVP PRN (06:50)
[2023-11-15 07:36] LABS: Hematocrit 37.2 % (36.0-47.0); Hemoglobin 10.6 g/dL (12.0-16.0); Mean Corpuscular HGB CONC 28.5 g/dL (32.0-36.0); Mean Corpuscular Hemoglobin 27.2 pg (27.0-31.0); Mean Corpuscular Volume 95.4 fl (78.0-98.0); Mean Platelet Volume 9.7 fL (7.4-10.4); Platelet Count 464 10x3/uL (130-400); RBC Distribution Width 18.6 % (11.5-14.5); White Blood Cell (WBC) Count 23.5 10x3/uL (4.8-10.8)
[2023-11-15 07:40] LABS: Delete Auto Diff?? YES; Manual Diff?? YES
[2023-11-15] MEDS: Budesonide 0.25 MG/2 ML NEB NEB SCH ×2 (07:48→18:47)
[2023-11-15 07:55] LABS: Vancomycin, Trough 18.2 ug/mL
[2023-11-15 07:57] LABS: BUN (Urea Nitrogen) 19 mg/dL (9.8-20.1); Calc. Creatinine Clearance 161 mL/min (70-130); Calcium 9.1 mg/dL (7.8-10.44); Estimated GFR 100; Glucose 127 mg/dL (83-110)
[2023-11-15 08:06] LABS: Anion Gap 19 mmol/L (10-20); Band 2 % (5-11); Carbon Dioxide 41 mmol/L (23-31); CellaVision Operator ID LAB.GE; Chloride 88 mmol/L (98-107); Monocytes 3 % (0-10); Neutrophil 94 % (42-75); Platelet Adequacy Comment Platelets Increased; Polychromasia SLIGHT = 2-3 cells HPF (0-2); Potassium 3.9 mmol/L (3.5-5.1); Reactive Lymphocytes 1 % (0-10); Sodium 144 mmol/L (136-145); Total Cell Count 98
[2023-11-15] MEDS: Apixaban 5 MG TAB PO SCH ×2 (09:04→20:38)
[2023-11-15] MEDS: guaiFENesin ER 600 MG TAB PO SCH ×2 (09:04→20:38)
[2023-11-15] MEDS: Gabapentin 300 MG CAP PO SCH (09:04)
[2023-11-15] MEDS: Vancomycin (BATCH) 1.25 GM in Premix 1 BAG IVPB SCH ×2 (09:04→20:34)
[2023-11-15] MEDS: Pantoprazole 40 MG VIAL IVP SCH ×2 (09:04→20:38)
[2023-11-15] MEDS: Modafinil 100 MG TAB PO SCH (13:42)
[2023-11-15] MEDS: Ondansetron PF 4 MG/2 ML Vial IVP PRN (19:31)
[2023-11-15] MEDS ORDERED: Calcium Carbonate 500 MG ChewTAB PO PRN (22:32)
[2023-11-16] MEDS: Morphine 2 MG/ML VIAL SLOW IVP PRN ×7 (01:17→23:40)
[2023-11-16] MEDS: Ipratropium/Albuterol 3 ML NEB NEB SCH ×6 (02:15→22:35)
[2023-11-16] MEDS: Furosemide 40 MG (4 mL) VIAL SLOW IVP SCH ×2 (05:28→13:08)
[2023-11-16] MEDS: methylPREDNISolone Sod Succ 40 MG VIAL IVP SCH ×4 (05:28→23:42)
[2023-11-16] MEDS: Meropenem 1 GM in Sodium Chloride 0.9% 100 ML IVPB SCH ×3 (05:28→22:30)
[2023-11-16 06:03] LABS: #Monocytes 1.1 thou/uL (0.11-0.59); #Neutrophils 17.7 thou/uL (1.40-6.50); %Basophils 0.2 % (0.0-1.0); %Eosinophils 0.1 % (0.0-10.0); %Lymphocytes 3.4 % (21.0-51.0); %Monocytes 5.6 % (0.0-10.0); %Neutrophils 89.1 % (42.0-75.0); Hematocrit 38.6 % (36.0-47.0); Hemoglobin 11.1 g/dL (12.0-16.0); Mean Corpuscular HGB CONC 28.8 g/dL (32.0-36.0); Mean Corpuscular Hemoglobin 26.9 pg (27.0-31.0); Mean Corpuscular Volume 93.7 fl (78.0-98.0); Mean Platelet Volume 9.5 fL (7.4-10.4); Platelet Count 472 10x3/uL (130-400); RBC Distribution Width 18.5 % (11.5-14.5); Red Blood Cell (RBC) Count 4.12 mill/uL (4.20-5.40); White Blood Cell (WBC) Count 19.8 10x3/uL (4.8-10.8)
[2023-11-16 06:31] LABS: BUN (Urea Nitrogen) 24 mg/dL (9.8-20.1); Calc. Creatinine Clearance 114 mL/min (70-130); Estimated GFR 97; Glucose 127 mg/dL (83-110)
[2023-11-16 06:43] LABS: Anion Gap 19 mmol/L (10-20); Carbon Dioxide 39 mmol/L (23-31); Chloride 86 mmol/L (98-107); Potassium 4.1 mmol/L (3.5-5.1); Sodium 140 mmol/L (136-145)
[2023-11-16] MEDS: Budesonide 0.25 MG/2 ML NEB NEB SCH ×2 (07:15→18:21)
[2023-11-16] MEDS: Apixaban 5 MG TAB PO SCH ×2 (08:02→20:51)
[2023-11-16] MEDS: Gabapentin 300 MG CAP PO SCH (08:02)
[2023-11-16] MEDS: Modafinil 100 MG TAB PO SCH (08:02)
[2023-11-16] MEDS: Pantoprazole 40 MG VIAL IVP SCH ×2 (08:03→20:46)
[2023-11-16] MEDS: guaiFENesin ER 600 MG TAB PO SCH ×2 (08:03→20:51)
[2023-11-16] MEDS: Vancomycin (BATCH) 1.25 GM in Premix 1 BAG IVPB SCH ×2 (08:03→20:45)
[2023-11-16] MEDS: Ondansetron PF 4 MG/2 ML Vial IVP PRN (20:23)
[2023-11-17] MEDS: Ipratropium/Albuterol 3 ML NEB NEB SCH ×6 (03:16→23:23)
[2023-11-17] MEDS: Morphine 2 MG/ML VIAL SLOW IVP PRN ×3 (05:22→19:27)
[2023-11-17] MEDS: Furosemide 40 MG (4 mL) VIAL SLOW IVP SCH ×2 (05:25→14:08)
[2023-11-17] MEDS: Meropenem 1 GM in Sodium Chloride 0.9% 100 ML IVPB SCH ×3 (05:26→22:41)
[2023-11-17] MEDS: methylPREDNISolone Sod Succ 40 MG VIAL IVP SCH ×3 (05:38→17:23)
[2023-11-17] MEDS: Budesonide 0.25 MG/2 ML NEB NEB SCH ×2 (07:19→19:32)
[2023-11-17 08:14] LABS: #Basophils 0.1 thou/uL (0.0-0.2); #Monocytes 0.9 thou/uL (0.11-0.59); #Neutrophils 15.1 thou/uL (1.40-6.50); %Basophils 0.3 % (0.0-1.0); %Eosinophils 0.1 % (0.0-10.0); %Lymphocytes 6.4 % (21.0-51.0); %Monocytes 4.9 % (0.0-10.0); %Neutrophils 86.9 % (42.0-75.0); Hematocrit 42.8 % (36.0-47.0); Hemoglobin 12.4 g/dL (12.0-16.0); Mean Corpuscular Hemoglobin 27.3 pg (27.0-31.0); Mean Corpuscular Volume 94.3 fl (78.0-98.0); Mean Platelet Volume 9.5 fL (7.4-10.4); Platelet Count 370 10x3/uL (130-400); RBC Distribution Width 18.7 % (11.5-14.5); Red Blood Cell (RBC) Count 4.54 mill/uL (4.20-5.40); White Blood Cell (WBC) Count 17.4 10x3/uL (4.8-10.8)
[2023-11-17 08:31] LABS: Anion Gap 17 mmol/L (10-20); BUN (Urea Nitrogen) 27 mg/dL (9.8-20.1); Calc. Creatinine Clearance 121 mL/min (70-130); Calcium 8.9 mg/dL (7.8-10.44); Carbon Dioxide 35 mmol/L (23-31); Chloride 89 mmol/L (98-107); Estimated GFR 94; Glucose 131 mg/dL (83-110); Potassium 4.4 mmol/L (3.5-5.1); Sodium 137 mmol/L (136-145)
[2023-11-17] MEDS: Ondansetron PF 4 MG/2 ML Vial IVP PRN ×2 (09:23→15:44)
[2023-11-17] MEDS: guaiFENesin ER 600 MG TAB PO SCH ×2 (09:30→20:33)
[2023-11-17] MEDS: Apixaban 5 MG TAB PO SCH ×2 (09:30→20:33)
[2023-11-17] MEDS: Modafinil 100 MG TAB PO SCH (09:30)
[2023-11-17] MEDS: Gabapentin 300 MG CAP PO SCH (09:30)
[2023-11-17] MEDS: Vancomycin (BATCH) 1.25 GM in Premix 1 BAG IVPB SCH ×2 (09:30→20:32)
[2023-11-17] MEDS: Pantoprazole 40 MG VIAL IVP SCH ×2 (09:31→20:33)
[2023-11-17] MEDS: Nystatin 500,000 UNITS/5 ML UDCUP SSW SCH ×3 (12:23→20:33)
[2023-11-18] MEDS: methylPREDNISolone Sod Succ 40 MG VIAL IVP SCH ×4 (00:01→18:02)
[2023-11-18] MEDS: Ondansetron PF 4 MG/2 ML Vial IVP PRN ×2 (00:30→10:09)
[2023-11-18] MEDS: Morphine 2 MG/ML VIAL SLOW IVP PRN ×5 (02:25→21:26)
[2023-11-18] MEDS: Ipratropium/Albuterol 3 ML NEB NEB SCH ×5 (02:53→18:31)
[2023-11-18] MEDS: Meropenem 1 GM in Sodium Chloride 0.9% 100 ML IVPB SCH ×3 (05:23→21:26)
[2023-11-18] MEDS: Furosemide 40 MG (4 mL) VIAL SLOW IVP SCH ×2 (05:23→13:29)
[2023-11-18 05:33] LABS: Hematocrit 39.1 % (36.0-47.0); Hemoglobin 11.7 g/dL (12.0-16.0); Manual Diff?? YES; Mean Corpuscular HGB CONC 29.9 g/dL (32.0-36.0); Mean Corpuscular Hemoglobin 27.5 pg (27.0-31.0); Mean Platelet Volume 9.9 fL (7.4-10.4); Platelet Count 454 10x3/uL (130-400); RBC Distribution Width 18.5 % (11.5-14.5); Red Blood Cell (RBC) Count 4.25 mill/uL (4.20-5.40)
[2023-11-18 05:52] LABS: Delete Auto Diff?? YES
[2023-11-18 06:16] LABS: Anion Gap 13 mmol/L (10-20); BUN (Urea Nitrogen) 31 mg/dL (9.8-20.1); Calc. Creatinine Clearance 120 mL/min (70-130); Calcium 8.7 mg/dL (7.8-10.44); Carbon Dioxide 36 mmol/L (23-31); Chloride 89 mmol/L (98-107); Estimated GFR 94; Glucose 202 mg/dL (83-110); Potassium 4.2 mmol/L (3.5-5.1); Sodium 134 mmol/L (136-145)
[2023-11-18 06:21] LABS: Anisocytosis SLIGHT = 6-15 cells HPF (0-5); Band 1 % (5-11); Burr Cells SLIGHT = 2-5 cells HPF (0-1); CellaVision Operator ID LAB.NR; Hypochromia SLIGHT = 6-15 cells HPF (0-5); Lymphocytes 4 % (21-51); Monocytes 1 % (0-10); Neutrophil 94 % (42-75); Platelet Adequacy Comment Platelets Increased; Polychromasia SLIGHT = 2-3 cells HPF (0-2); Smudge Cells 24.2 %; Total Cell Count 99
[2023-11-18] MEDS: Budesonide 0.25 MG/2 ML NEB NEB SCH ×2 (07:13→18:32)
[2023-11-18 09:11] LABS: Vancomycin, Trough 21.4 ug/mL
[2023-11-18] MEDS ORDERED: VANCOMYCIN IVPB SCH (09:45)
[2023-11-18] MEDS ORDERED: Vancomycin 1 GM in Premix 1 BAG IVPB SCH (09:45)
[2023-11-18] MEDS: Nystatin 500,000 UNITS/5 ML UDCUP SSW SCH ×4 (10:05→21:25)
[2023-11-18] MEDS: Gabapentin 300 MG CAP PO SCH (10:05)
[2023-11-18] MEDS: Pantoprazole 40 MG VIAL IVP SCH ×2 (10:05→21:25)
[2023-11-18] MEDS: Apixaban 5 MG TAB PO SCH ×2 (10:05→21:25)
[2023-11-18] MEDS: guaiFENesin ER 600 MG TAB PO SCH ×2 (10:05→21:25)
[2023-11-18] MEDS: Modafinil 100 MG TAB PO SCH (10:05)
[2023-11-18] MEDS: Vancomycin (BATCH) 1.25 GM in Premix 1 BAG IVPB SCH (12:18)
[2023-11-18] MEDS: Vancomycin 1 GM in Premix 1 BAG IVPB SCH (21:26)
[2023-11-19] MEDS: Ipratropium/Albuterol 3 ML NEB NEB SCH ×7 (00:31→23:02)
[2023-11-19] MEDS: Morphine 2 MG/ML VIAL SLOW IVP PRN ×7 (00:32→23:03)
[2023-11-19] MEDS: methylPREDNISolone Sod Succ 40 MG VIAL IVP SCH ×5 (00:32→23:04)
[2023-11-19] MEDS: Meropenem 1 GM in Sodium Chloride 0.9% 100 ML IVPB SCH ×3 (05:32→20:53)
[2023-11-19] MEDS: Furosemide 40 MG (4 mL) VIAL SLOW IVP SCH ×2 (05:32→13:07)
[2023-11-19] MEDS: Budesonide 0.25 MG/2 ML NEB NEB SCH ×2 (07:01→19:00)
[2023-11-19 07:38] LABS: #Basophils 0.1 thou/uL (0.0-0.2); #Monocytes 0.6 thou/uL (0.11-0.59); #Neutrophils 19.2 thou/uL (1.40-6.50); %Basophils 0.2 % (0.0-1.0); %Lymphocytes 4.8 % (21.0-51.0); %Monocytes 2.8 % (0.0-10.0); %Neutrophils 90.8 % (42.0-75.0); Hematocrit 41.1 % (36.0-47.0); Mean Corpuscular HGB CONC 29.2 g/dL (32.0-36.0); Mean Corpuscular Hemoglobin 27.3 pg (27.0-31.0); Mean Corpuscular Volume 93.6 fl (78.0-98.0); Platelet Count 420 10x3/uL (130-400); RBC Distribution Width 18.5 % (11.5-14.5); Red Blood Cell (RBC) Count 4.39 mill/uL (4.20-5.40); White Blood Cell (WBC) Count 21.2 10x3/uL (4.8-10.8)
[2023-11-19 08:06] LABS: BUN (Urea Nitrogen) 26 mg/dL (9.8-20.1); Calc. Creatinine Clearance 126 mL/min (70-130); Calcium 8.5 mg/dL (7.8-10.44); Estimated GFR 95; Glucose 207 mg/dL (83-110)
[2023-11-19 08:13] LABS: Carbon Dioxide Greater than 37 mmol/L (23-31); Chloride 86 mmol/L (98-107); Potassium 4.3 mmol/L (3.5-5.1); Sodium 138 mmol/L (136-145)
[2023-11-19] MEDS: Apixaban 5 MG TAB PO SCH ×2 (08:31→20:53)
[2023-11-19] MEDS: Gabapentin 300 MG CAP PO SCH (08:31)
[2023-11-19] MEDS: Modafinil 100 MG TAB PO SCH (08:31)
[2023-11-19] MEDS: guaiFENesin ER 600 MG TAB PO SCH ×2 (08:31→20:53)
[2023-11-19] MEDS: Pantoprazole 40 MG VIAL IVP SCH ×2 (08:32→20:53)
[2023-11-19] MEDS: Ondansetron PF 4 MG/2 ML Vial IVP PRN ×3 (08:32→23:04)
[2023-11-19] MEDS: Vancomycin 1 GM in Premix 1 BAG IVPB SCH ×2 (08:32→20:53)
[2023-11-19] MEDS: Nystatin 500,000 UNITS/5 ML UDCUP SSW SCH ×4 (08:32→20:53)
[2023-11-19 20:50] LABS: Vancomycin, Trough 18.9 ug/mL
[2023-11-19] MEDS: valACYclovir 500 MG TAB PO SCH (20:52)
[2023-11-20] MEDS: Morphine 2 MG/ML VIAL SLOW IVP PRN ×5 (01:58→23:19)
[2023-11-20] MEDS: Ipratropium/Albuterol 3 ML NEB NEB SCH ×6 (02:27→22:22)
[2023-11-20 05:12] LABS: #Monocytes 0.9 thou/uL (0.11-0.59); %Basophils 0.2 % (0.0-1.0); %Monocytes 3.6 % (0.0-10.0); %Neutrophils 89.9 % (42.0-75.0); Hematocrit 37.2 % (36.0-47.0); Hemoglobin 11.2 g/dL (12.0-16.0); Mean Corpuscular HGB CONC 30.1 g/dL (32.0-36.0); Mean Corpuscular Hemoglobin 28.1 pg (27.0-31.0); Mean Corpuscular Volume 93.2 fl (78.0-98.0); Mean Platelet Volume 9.7 fL (7.4-10.4); Platelet Count 397 10x3/uL (130-400); RBC Distribution Width 18.2 % (11.5-14.5); Red Blood Cell (RBC) Count 3.99 mill/uL (4.20-5.40); White Blood Cell (WBC) Count 24.5 10x3/uL (4.8-10.8)
[2023-11-20 05:34] LABS: BUN (Urea Nitrogen) 32 mg/dL (9.8-20.1); Calc. Creatinine Clearance 109 mL/min (70-130); Calcium 8.5 mg/dL (7.8-10.44); Estimated GFR 89; Glucose 148 mg/dL (83-110)
[2023-11-20 05:43] LABS: Anion Gap 17 mmol/L (10-20); Carbon Dioxide 35 mmol/L (23-31); Chloride 89 mmol/L (98-107); Potassium 4.5 mmol/L (3.5-5.1); Sodium 136 mmol/L (136-145)
[2023-11-20] MEDS: Ondansetron PF 4 MG/2 ML Vial IVP PRN ×3 (06:04→19:53)
[2023-11-20] MEDS: Furosemide 40 MG (4 mL) VIAL SLOW IVP SCH ×2 (06:04→14:22)
[2023-11-20] MEDS: Meropenem 1 GM in Sodium Chloride 0.9% 100 ML IVPB SCH ×3 (06:04→22:31)
[2023-11-20] MEDS: methylPREDNISolone Sod Succ 40 MG VIAL IVP SCH ×3 (06:04→22:32)
[2023-11-20] MEDS: Budesonide 0.25 MG/2 ML NEB NEB SCH ×2 (09:08→19:11)
[2023-11-20] MEDS: valACYclovir 500 MG TAB PO SCH ×2 (09:18→20:35)
[2023-11-20] MEDS: guaiFENesin ER 600 MG TAB PO SCH ×2 (09:18→20:35)
[2023-11-20] MEDS: Nystatin 500,000 UNITS/5 ML UDCUP SSW SCH ×4 (09:18→20:35)
[2023-11-20] MEDS: Apixaban 5 MG TAB PO SCH ×2 (09:18→20:35)
[2023-11-20] MEDS: Gabapentin 300 MG CAP PO SCH (09:18)
[2023-11-20] MEDS: Modafinil 100 MG TAB PO SCH (09:18)
[2023-11-20] MEDS: Vancomycin 1 GM in Premix 1 BAG IVPB SCH ×2 (09:19→20:35)
[2023-11-20 14:47] VITALS: BP 139/88
[2023-11-20] MEDS ORDERED: Metoprolol Tartrate 5 MG (5 mL) VIAL IVP PRN (15:17)
[2023-11-20] MEDS ORDERED: Metoprolol Tartrate 5 MG (5 mL) VIAL ONE (15:23)
[2023-11-21] MEDS: Ipratropium/Albuterol 3 ML NEB NEB SCH ×6 (02:08→22:19)
[2023-11-21] MEDS: Furosemide 40 MG (4 mL) VIAL SLOW IVP SCH (06:12)
[2023-11-21] MEDS: Meropenem 1 GM in Sodium Chloride 0.9% 100 ML IVPB SCH ×3 (06:13→22:08)
[2023-11-21] MEDS: methylPREDNISolone Sod Succ 40 MG VIAL IVP SCH ×2 (06:13→13:03)
[2023-11-21 06:47] LABS: Hemoglobin 12.3 g/dL (12.0-16.0); Manual Diff?? YES; Mean Corpuscular Hemoglobin 28.3 pg (27.0-31.0); Mean Corpuscular Volume 94.5 fl (78.0-98.0); Mean Platelet Volume 10.1 fL (7.4-10.4); Platelet Count 429 10x3/uL (130-400); RBC Distribution Width 18.3 % (11.5-14.5); Red Blood Cell (RBC) Count 4.34 mill/uL (4.20-5.40); White Blood Cell (WBC) Count 25.7 10x3/uL (4.8-10.8)
[2023-11-21 06:54] LABS: Delete Auto Diff?? YES
[2023-11-21] MEDS: Budesonide 0.25 MG/2 ML NEB NEB SCH ×2 (07:01→18:38)
[2023-11-21 07:03] LABS: BUN (Urea Nitrogen) 36 mg/dL (9.8-20.1); Calc. Creatinine Clearance 116 mL/min (70-130); Calcium 8.7 mg/dL (7.8-10.44); Estimated GFR 94; Glucose 132 mg/dL (83-110)
[2023-11-21 07:08] LABS: Carbon Dioxide Greater than 37 mmol/L (23-31); Chloride 86 mmol/L (98-107); Potassium 4.3 mmol/L (3.5-5.1); Sodium 137 mmol/L (136-145)
[2023-11-21 07:19] LABS: Band 5 % (5-11); CellaVision Operator ID lab.dlt; Lymphocytes 5 % (21-51); Monocytes 4 % (0-10); Neutrophil 86 % (42-75); Platelet Adequacy Comment Platelets Increased; Polychromasia MODERATE = 3-4 cells HPF (0-2); Stomatocytes SLIGHT = 2-5 cells HPF (0-1); Total Cell Count 100
[2023-11-21] MEDS: Gabapentin 300 MG CAP PO SCH ×4 (08:04→19:56)
[2023-11-21] MEDS: Nystatin 500,000 UNITS/5 ML UDCUP SSW SCH ×4 (08:04→19:57)
[2023-11-21] MEDS: valACYclovir 500 MG TAB PO SCH ×2 (08:04→19:57)
[2023-11-21] MEDS: guaiFENesin ER 600 MG TAB PO SCH ×2 (08:11→19:56)
[2023-11-21] MEDS: Modafinil 100 MG TAB PO SCH (08:11)
[2023-11-21] MEDS: Apixaban 5 MG TAB PO SCH ×2 (08:11→19:56)
[2023-11-21] MEDS: Morphine 2 MG/ML VIAL SLOW IVP PRN ×2 (08:11→12:41)
[2023-11-21] MEDS: Vancomycin 1 GM in Premix 1 BAG IVPB SCH (08:27)
[2023-11-21] MEDS ORDERED: Gabapentin 300 MG CAP PO SCH (15:00)
[2023-11-21] MEDS: Morphine ER 15 MG TAB PO SCH (19:51)
[2023-11-22] MEDS: methylPREDNISolone Sod Succ 40 MG VIAL IVP SCH ×2 (01:39→14:03)
[2023-11-22] MEDS: Ipratropium/Albuterol 3 ML NEB NEB SCH ×6 (02:45→23:00)
[2023-11-22] MEDS ORDERED: Meropenem 1 GM in Sodium Chloride 0.9% 100 ML IVPB SCH (06:30)
[2023-11-22] MEDS: Meropenem 1 GM in Sodium Chloride 0.9% 100 ML IVPB SCH ×3 (06:32→22:55)
[2023-11-22 06:45] LABS: Delete Auto Diff?? YES; Hemoglobin 11.4 g/dL (12.0-16.0); Manual Diff?? YES; Mean Corpuscular Hemoglobin 27.8 pg (27.0-31.0); Mean Corpuscular Volume 92.7 fl (78.0-98.0); Mean Platelet Volume 9.8 fL (7.4-10.4); Platelet Count 379 10x3/uL (130-400); RBC Distribution Width 18.1 % (11.5-14.5); White Blood Cell (WBC) Count 28.6 10x3/uL (4.8-10.8)
[2023-11-22] MEDS: Budesonide 0.25 MG/2 ML NEB NEB SCH ×2 (06:52→18:31)
[2023-11-22 07:55] LABS: BUN (Urea Nitrogen) 37 mg/dL (9.8-20.1); Calc. Creatinine Clearance 140 mL/min (70-130); Calcium 8.7 mg/dL (7.8-10.44); Estimated GFR 98; Glucose 110 mg/dL (83-110)
[2023-11-22 08:06] LABS: Chloride 85 mmol/L (98-107); Potassium 4.3 mmol/L (3.5-5.1); Sodium 134 mmol/L (136-145)
[2023-11-22 08:09] LABS: Anion Gap 17 mmol/L (10-20); Carbon Dioxide 36 mmol/L (23-31)
[2023-11-22] MEDS: Gabapentin 300 MG CAP PO SCH ×3 (08:23→22:51)
[2023-11-22] MEDS: Modafinil 100 MG TAB PO SCH (08:23)
[2023-11-22] MEDS: Morphine ER 15 MG TAB PO SCH ×2 (08:23→22:51)
[2023-11-22] MEDS: guaiFENesin ER 600 MG TAB PO SCH ×2 (08:24→22:52)
[2023-11-22] MEDS: Apixaban 5 MG TAB PO SCH ×2 (08:25→22:51)
[2023-11-22] MEDS: valACYclovir 500 MG TAB PO SCH ×2 (08:25→22:51)
[2023-11-22] MEDS: Nystatin 500,000 UNITS/5 ML UDCUP SSW SCH ×4 (08:25→22:51)
[2023-11-22 08:44] LABS: Band 2 % (5-11); CellaVision Operator ID LAB.GE; Lymphocytes 1 % (21-51); Monocytes 1 % (0-10); Neutrophil 96 % (42-75); Platelet Adequacy Comment Platelets Normal; Polychromasia SLIGHT = 2-3 cells HPF (0-2); Total Cell Count 99
[2023-11-23] MEDS: methylPREDNISolone Sod Succ 40 MG VIAL IVP SCH ×2 (01:50→13:35)
[2023-11-23] MEDS: Ipratropium/Albuterol 3 ML NEB NEB SCH ×4 (02:27→14:10)
[2023-11-23 06:35] LABS: BUN (Urea Nitrogen) 31 mg/dL (9.8-20.1); Calc. Creatinine Clearance 149 mL/min (70-130); Calcium 8.6 mg/dL (7.8-10.44); Estimated GFR 99; Glucose 118 mg/dL (83-110)
[2023-11-23 06:45] LABS: Anion Gap 16 mmol/L (10-20); Carbon Dioxide 35 mmol/L (23-31); Chloride 88 mmol/L (98-107); Potassium 4.3 mmol/L (3.5-5.1); Sodium 135 mmol/L (136-145)
[2023-11-23] MEDS: Budesonide 0.25 MG/2 ML NEB NEB SCH (07:51)
[2023-11-23] MEDS: Nystatin 500,000 UNITS/5 ML UDCUP SSW SCH ×2 (08:56→13:35)
[2023-11-23] MEDS: Morphine ER 15 MG TAB PO SCH (08:56)
[2023-11-23] MEDS: Gabapentin 300 MG CAP PO SCH ×2 (08:58→16:14)
[2023-11-23] MEDS: Apixaban 5 MG TAB PO SCH (08:58)
[2023-11-23] MEDS: valACYclovir 500 MG TAB PO SCH (08:59)
[2023-11-23] MEDS: guaiFENesin ER 600 MG TAB PO SCH (08:59)
[2023-11-23] MEDS: Modafinil 100 MG TAB PO SCH (08:59)
[2023-11-23 13:27] VITALS: TEMP 97.5
== END 2023-11-23 16:00 | disposition hospice, home (50) | DRG 193 ==
LOC: IMCU/EMU 16:25
PROVIDERS: ADMIT Family Medicine; ATTEND Hospitalist
PROC: 30233N1 Transfusion of Nonautologous Red Blood Cells into Peripheral Vein, Percutaneous Approach (ICD-10-PCS; principal; 2023-11-10)
PROC: 5A0955A Assistance with Respiratory Ventilation, Greater than 96 Consecutive Hours, High Flow/Velocity Cannula (ICD-10-PCS; 2023-11-10)
DX: J13 Pneumonia due to Streptococcus pneumoniae (principal); J96.21 Acute and chronic respiratory failure with hypoxia; C34.92 Malignant neoplasm of unspecified part of left bronchus or lung; J44.1 Chronic obstructive pulmonary disease with (acute) exacerbation; J90 Pleural effusion, not elsewhere classified; J18.9 Pneumonia, unspecified organism; G47.33 Obstructive sleep apnea (adult) (pediatric); D50.9 Iron deficiency anemia, unspecified; Z66 Do not resuscitate; Z51.5 Encounter for palliative care; Z99.81 Dependence on supplemental oxygen; Z91.048 Other nonmedicinal substance allergy status; Z87.891 Personal history of nicotine dependence; Z91.018 Allergy to other foods; Z88.8 Allergy status to other drugs, medicaments and biological substances; Z79.899 Other long term (current) drug therapy; Z79.51 Long term (current) use of inhaled steroids; Z86.711 Personal history of pulmonary embolism
CPT/HCPCS: 36415; 36430; 71045; 71275; 80048; 80076; 80202; 82607; 82728; 83036; 83540; 83550; 83735; 85025; 85046; 86850; 86900; 86901; 87070; 87081; 87205; 87449; 87899; 93005; 93010; 93306; 93970; 94640; C9113; J1650; J1940; J2060; J2185; J2272; J2405; J2920; J3370; J3370-JW; J3490; J7620; J7626; P9016

== ENCOUNTER 2024-07-22 12:22 | Outpatient (CLI) | payer MEDICARE, OTHER | END 2024-07-22 12:23 | disposition home or self-care (01) | LOC: RAD 12:22 | PROVIDERS: ATTEND Student in an Organized Health Care Education/Training Program | DX: C34.32 Malignant neoplasm of lower lobe, left bronchus or lung (principal); J18.9 Pneumonia, unspecified organism | CPT/HCPCS: 71046 ==

== ENCOUNTER 2025-07-08 01:24 | Inpatient (IN) | payer MEDICARE ==
[2025-07-08] MEDS ORDERED: Ondansetron PF 4 MG/2 ML Vial IVP PRN (04:37)
[2025-07-08] MEDS: Vancomycin 1 GM in Premix 1 BAG IVPB SCH ×2 (05:46→21:45)
[2025-07-08 05:49] LABS: Anion Gap 15 mmol/L (10-20); BUN (Urea Nitrogen) 7 mg/dL (9.8-20.1); Calc. Creatinine Clearance 125 mL/min (70-130); Calcium 9.1 mg/dL (7.8-10.44); Carbon Dioxide 30 mmol/L (23-31); Chloride 102 mmol/L (98-107); Glucose 130 mg/dL (83-110); Potassium 3.5 mmol/L (3.5-5.1); Sodium 143 mmol/L (136-145)
[2025-07-08 06:13] LABS: #Basophils 0.04 10x3/uL (0.0-0.2); #Eosinophils 0.25 10x3/uL (0.0-0.7); #Monocytes 0.87 10x3/uL (0.11-0.59); #Neutrophils 9.20 10x3/uL (1.40-6.50); %Basophils 0.3 % (0.0-1.0); %Eosinophils 1.8 % (0.0-10.0); %Lymphocytes 23.9 % (21.0-51.0); %Monocytes 6.4 % (0.0-10.0); %Neutrophils 67.3 % (42.0-75.0); Hematocrit 29.8 % (36.0-47.0); Hemoglobin 8.6 g/dL (12.0-16.0); Mean Corpuscular Hemoglobin 26.3 pg (27.0-31.0); Mean Corpuscular Volume 91.1 fL (78.0-98.0); Platelet Count 651 10x3/uL (130-400); Red Blood Cell (RBC) Count 3.27 mill/uL (4.20-5.40); White Blood Cell (WBC) Count 13.66 10x3/uL (4.8-10.8)
[2025-07-08] MEDS: Ipratropium Bromide 2.5 ml Neb NEB SCH (07:38)
[2025-07-08] MEDS: Gabapentin 300 MG CAP PO SCH (09:09)
[2025-07-08] MEDS: Pantoprazole 40 MG DR.TAB PO SCH (09:09)
[2025-07-08] MEDS: Apixaban 5 MG TAB PO SCH (20:06)
[2025-07-09 10:53] LABS: Vancomycin, Random 19.0 ug/mL (See Comment)
[2025-07-09 10:54] LABS: Anion Gap 12 mmol/L (10-20); BUN (Urea Nitrogen) 6 mg/dL (9.8-20.1); Calc. Creatinine Clearance 135 mL/min (70-130); Calcium 8.6 mg/dL (7.8-10.44); Carbon Dioxide 31 mmol/L (23-31); Chloride 103 mmol/L (98-107); Glucose 120 mg/dL (83-110); Potassium 3.6 mmol/L (3.5-5.1); Sodium 142 mmol/L (136-145)
[2025-07-09 11:17] LABS: #Basophils 0.04 10x3/uL (0.0-0.2); #Eosinophils 0.37 10x3/uL (0.0-0.7); #Monocytes 0.82 10x3/uL (0.11-0.59); #Neutrophils 4.46 10x3/uL (1.40-6.50); %Basophils 0.5 % (0.0-1.0); %Eosinophils 4.3 % (0.0-10.0); %Lymphocytes 32.5 % (21.0-51.0); %Monocytes 9.6 % (0.0-10.0); %Neutrophils 52.5 % (42.0-75.0); Hematocrit 25.7 % (36.0-47.0); Hemoglobin 7.3 g/dL (12.0-16.0); Mean Corpuscular Hemoglobin 26.1 pg (27.0-31.0); Mean Corpuscular Volume 91.8 fL (78.0-98.0); Platelet Count 614 10x3/uL (130-400); Red Blood Cell (RBC) Count 2.80 mill/uL (4.20-5.40); White Blood Cell (WBC) Count 8.51 10x3/uL (4.8-10.8)
[2025-07-09 12:49] LABS: Anisocytosis SLIGHT = 6-15 cells HPF (0-5); Macrocytosis SLIGHT = 6-15 cells HPF (0-5); Platelet Adequacy Comment Platelets Increased; Polychromasia MODERATE = 3-4 cells HPF (0-2); Stomatocytes SLIGHT = 2-5 cells HPF (0-1)
[2025-07-09] MEDS: Acetaminophen 325 MG TAB PO PRN (15:45)
[2025-07-09] MEDS: Amoxicillin/Potassium Clav 875 MG TAB PO SCH (20:27)
[2025-07-10] MEDS: Guaifenesin DM 100-10/5 ML UDCUP PO PRN (04:53)
[2025-07-10 05:12] LABS: #Basophils 0.04 10x3/uL (0.0-0.2); #Eosinophils 0.39 10x3/uL (0.0-0.7); #Monocytes 0.97 10x3/uL (0.11-0.59); #Neutrophils 5.57 10x3/uL (1.40-6.50); %Basophils 0.4 % (0.0-1.0); %Eosinophils 3.6 % (0.0-10.0); %Lymphocytes 35.1 % (21.0-51.0); %Monocytes 9.0 % (0.0-10.0); %Neutrophils 51.3 % (42.0-75.0); Hematocrit 27.3 % (36.0-47.0); Hemoglobin 7.7 g/dL (12.0-16.0); Mean Corpuscular Hemoglobin 26.6 pg (27.0-31.0); Mean Corpuscular Volume 94.1 fL (78.0-98.0); Platelet Count 657 10x3/uL (130-400); Red Blood Cell (RBC) Count 2.90 mill/uL (4.20-5.40); White Blood Cell (WBC) Count 10.83 10x3/uL (4.8-10.8)
[2025-07-10 05:25] LABS: Anion Gap 12 mmol/L (10-20); BUN (Urea Nitrogen) 9 mg/dL (9.8-20.1); Calc. Creatinine Clearance 112 mL/min (70-130); Calcium 8.7 mg/dL (7.8-10.44); Carbon Dioxide 33 mmol/L (23-31); Chloride 104 mmol/L (98-107); Glucose 109 mg/dL (83-110); Potassium 3.9 mmol/L (3.5-5.1); Sodium 145 mmol/L (136-145)
[2025-07-10] MEDS ORDERED: Non-Formulary Item 1 EACH (Tiotropium Bromide 4 GM Inhaler) INH SCH (09:00)
[2025-07-10 12:57] VITALS: BP 100/67; TEMP 99.2
== END 2025-07-10 15:49 | disposition hospice, home (50) | DRG 180 ==
LOC: MSONC 01:51 → OBSVTOIN 07-10 10:27
PROVIDERS: ADMIT Internal Medicine; ATTEND Internal Medicine
DX: C34.90 Malignant neoplasm of unspecified part of unspecified bronchus or lung (principal); J18.9 Pneumonia, unspecified organism; J96.11 Chronic respiratory failure with hypoxia; J91.0 Malignant pleural effusion; J44.9 Chronic obstructive pulmonary disease, unspecified; Z91.018 Allergy to other foods; Z98.890 Other specified postprocedural states; Z90.49 Acquired absence of other specified parts of digestive tract; Z90.79 Acquired absence of other genital organ(s); Z86.711 Personal history of pulmonary embolism; K21.9 Gastro-esophageal reflux disease without esophagitis; G47.33 Obstructive sleep apnea (adult) (pediatric); Z85.118 Personal history of other malignant neoplasm of bronchus and lung; Z92.21 Personal history of antineoplastic chemotherapy; Z92.3 Personal history of irradiation; Z87.891 Personal history of nicotine dependence; Z79.899 Other long term (current) drug therapy
CPT/HCPCS: 36415; 80048; 80202; 84145; 85025; 87070; 87081; 87205; 94640; 96365; 96375; 96376; G0378; J0692; J3373; J7620; J7644